=== PATIENT | male | born 1970 | race Caucasian/White ===

== ENCOUNTER 2018-03-18 17:27 | Emergency (ER) | payer SELFPAY ==
[~2018-03-18] VITALS: Ht 167.6 cm; Wt 65.9 kg
[~2018-03-18 17:27] MED LIST: ARIP15TA2 PO; FOLI1 PO; GABA-531 PO; MULT-1203 PO; THIA100T13 PO; VENL-67 PO
[2018-03-18 19:55] VITALS: BP 132/74
== END 2018-03-18 20:41 | disposition home or self-care (01) ==
LOC: EMS 17:28
DX: F10.10 Alcohol abuse, uncomplicated (principal); R03.0 Elevated blood-pressure reading, without diagnosis of hypertension; F31.9 Bipolar disorder, unspecified; F41.9 Anxiety disorder, unspecified; F14.90 Cocaine use, unspecified, uncomplicated; F15.90 Other stimulant use, unspecified, uncomplicated; F17.210 Nicotine dependence, cigarettes, uncomplicated; Z79.899 Other long term (current) drug therapy; Y90.0 Blood alcohol level of less than 20 mg/100 ml

== ENCOUNTER 2018-07-12 11:28 | Emergency (ER) | payer MEDICAID ==
[~2018-07-12] VITALS: Ht 167.6 cm; Wt 63.6 kg
[2018-07-12] MEDS ORDERED: DULO20CA30 PO (11:43)
[2018-07-12 15:20] LABS: BASOPHILS % (AUTO) 1.3 % (0.0-2.0); EOSINOPHILS % (AUTO) 2.3 % (1.0-6.0); HEMATOCRIT 38.2 % (41-53); HEMOGLOBIN 13.1 g/dL (13.5-17.5); LYMPHOCYTES # (AUTO) 1.8 K/uL (1.0-4.8); LYMPHOCYTES % (AUTO) 26.6 % (22.0-44.0); MEAN CORPUSCULAR HEMOGLOBIN 29.1 pg (26.0-34.0); MEAN CORPUSCULAR HGB CONC 34.2 G/dL (31.0-37.0); MEAN CORPUSCULAR VOLUME 85 fL (80-100); MONOCYTES # (AUTO) 0.7 K/uL (0.1-1.0); MONOCYTES % (AUTO) 10.1 % (2.0-9.0); NEUTROPHILS # (AUTO) 3.9 K/uL (1.8-7.7); NEUTROPHILS % (AUTO) 59.7 % (40.0-70.0); PLATELET COUNT (AUTO) 249 K/uL (150-450); RED BLOOD CELL COUNT(AUTO) 4.49 MIL/uL (4.50-5.90); RED CELL DISTRIBUTION WIDTH 13.9 % (11.5-14.5)
[2018-07-12 15:29] LABS: ALANINE AMINOTRANSFERASE 37 U/L (12-78); ALBUMIN 3.3 g/dL (3.4-5.0); ALKALINE PHOSPHATASE 43 U/L (46-116); ANION GAP 8 mmol/L (8-16); ASPARTATE AMINOTRANSFERASE 27 U/L (15-37); BILIRUBIN,TOTAL 0.8 mg/dL (0.1-1.0); CALCIUM, TOTAL 8.9 mg/dL (8.8-10.5); CARBON DIOXIDE 27 mmol/L (22-29); CHLORIDE 102 mmol/L (98-107); CREATININE 0.75 mg/dL (0.60-1.30); GLOMERULAR FILTR. RATE CALC > 60 mL/min (>60); GLUCOSE,RANDOM 72 mg/dL (70-110); LIPASE 106 U/L (73-393); POTASSIUM 4.5 mmol/L (3.5-5.1); SODIUM SERUM 137 mmol/L (136-145); TOTAL PROTEIN, SERUM 6.7 g/dL (6.4-8.2)
[2018-07-12] MEDS ORDERED: PROMETHAZINE HCL 25 MG TABLET PO ONE (15:30)
[2018-07-12 15:41] LABS: UREA NITROGEN, BLOOD 17 mg/dL (7-18)
[2018-07-12 16:45] VITALS: BP 101/77
[2018-07-12 17:40] LABS: APPEARANCE,URINE CLOUDY (CLEAR); BILIRUBIN,URINE PRELIM. POSITIVE (NEGATIVE); GLUCOSE, URINE (UA) NEGATIVE (NEGATIVE); KETONES,URINE TRACE mg/dL (NEGATIVE); LEUKOCYTE ESTERASE ,URINE NEGATIVE (NEGATIVE); NITRATE,URINE NEGATIVE (NEGATIVE); OCCULT BLOOD,URINE NEGATIVE (NEGATIVE); PH,URINE 6.5 (5.0-8.0); PROTEIN,URINE NEGATIVE (NEGATIVE)
== END 2018-07-12 17:21 | disposition home or self-care (01) ==
LOC: EMS 11:29
DX: R11.2 Nausea with vomiting, unspecified (principal); F41.9 Anxiety disorder, unspecified; F31.9 Bipolar disorder, unspecified; F19.90 Other psychoactive substance use, unspecified, uncomplicated; F14.90 Cocaine use, unspecified, uncomplicated

== ENCOUNTER 2019-12-30 12:36 | Inpatient (IN) | payer MEDICAID, OTHER ==
[~2019-12-30] VITALS: Ht 172.7 cm; Wt 72.8 kg
[~2019-12-30 12:36] MED LIST changes: +DULO20CA27 PO; -FOLI1 PO; -GABA-531 PO; -MULT-1203 PO; -THIA100T13 PO; -VENL-67 PO
[2019-12-30] MEDS ORDERED: SODIUM CHLORIDE 0.9% 100 ML ONE (12:57)
[2019-12-30] MEDS ORDERED: IOVERSOL 320 MG/ML 100 ML VIAL ONE (12:57)
[2019-12-30] MEDS ORDERED: PERTUSS(ACELL),DIPH,TET VAC/PF 0.5 ML VIAL IM ONE (13:00)
[2019-12-30] MEDS ORDERED: NALOXONE HCL 1 MG/ML 2 ML SYG IVP ONE (13:00)
[2019-12-30 13:06] LABS: GLUCOSE,POINT OF CARE 119 MG/DL (70-110)
[2019-12-30] MEDS ORDERED: SODIUM CHLORIDE 0.9% 1,000 ML IV ONE ×2 (13:30→15:00)
[2019-12-30 14:05] LABS: HEMATOCRIT 40.5 % (41-53); HEMOGLOBIN 14.1 g/dL (13.5-17.5); MEAN CORPUSCULAR HEMOGLOBIN 31.5 pg (26.0-34.0); MEAN CORPUSCULAR HGB CONC 34.9 G/dL (31.0-37.0); MEAN CORPUSCULAR VOLUME 90 fL (80-100); PLATELET COUNT (AUTO) 416 K/uL (150-450); RED BLOOD CELL COUNT(AUTO) 4.49 MIL/uL (4.50-5.90); RED CELL DISTRIBUTION WIDTH 13.7 % (11.5-14.5)
[2019-12-30 14:21] LABS: ABG A-A DIFF O2 169.5 mmHg (10-20.0); ABG BASE EXCESS -1.5 mmol/L (-2.0-3.0); ABG CARBOXYHEMOGLOBIN 1.5 % (0.0-1.5); ABG HCO3 23.1 mmol/L (22.0-26.0); ABG METHEMOGLOBIN 0.2 % (0.0-1.5); ABG OXYGEN CONTENT 15.5 mL/dL (15.0-23.0); ABG OXYHEMOGLOBIN 78.9 % (94.0-100.0); ABG PCO2 38 mmHg (35-45); ABG PH 7.402 (7.35-7.450); PO2, ARTERIAL BG 42.4 mmHg (88.0-96.0); SOURCE, BLOOD GAS ARTERIAL; TEMPERATURE, FAHRENHEIT, BG 99.7 FAHREN (96.0-98.6)
[2019-12-30 14:22] LABS: ABG OXYGEN SATURATION 80.3 % (95.0-98.0); O2 DEVICE,BLOOD GAS CANNULA (ROOM AIR); SITE, BLOOD GAS RT BRACHIAL
[2019-12-30 14:31] LABS: BAND NEUTROPHILS % (MANUAL) 54 % (0-5); LYMPHOCYTES % (MANUAL) 9 % (22-44); METAMYELOCYTES % 2 % (0-0); MONOCYTES % (MANUAL) 2 % (2-9); SEGMENTED NEUTROPHILS % 33 % (40-70)
[2019-12-30 14:32] LABS: LACTIC ACID 2.7 mmol/L (0.4-2.0)
[2019-12-30 14:52] LABS: AMPHET/METH SCREEN,URINE NEGATIVE (NEGATIVE); BARBITURATE SCREEN, URINE NEGATIVE (NEGATIVE); BENZODIAZEPINES SCREEN,URINE POSITIVE (NEGATIVE); CANNABINOID SCREEN,URINE NEGATIVE (NEGATIVE); COCAINE SCREEN,URINE NEGATIVE (NEGATIVE); METHADONE SCREEN, URINE POSITIVE (NEGATIVE); OPIATE SCREEN,URINE NEGATIVE (NEGATIVE)
[2019-12-30 14:55] LABS: PHENCYCLIDINE SCREEN,URINE NEGATIVE (NEGATIVE)
[2019-12-30] MEDS ORDERED: IOVERSOL 350 MG/ML 100 ML VIAL ONE (14:55)
[2019-12-30] MEDS ORDERED: VANCOMYCIN HCL 1 GM/D5% WATER 200 ML IV ONE (15:00)
[2019-12-30] MEDS ORDERED: PIPERACILLIN/TAZO 3.375 GM/D5W 50 ML IV ONE (15:00)
[2019-12-30] MEDS ORDERED: AZITHROMYCIN 500 MG/NS 250 ML IV ONE (15:15)
[2019-12-30] MEDS ORDERED: DEXAMETHASONE SOD PHOS 4 MG/ML VIAL IVP ONE (15:30)
[2019-12-30] MEDS ORDERED: IPRATROPIUM BROMIDE 0.5 MG/2.5 ML NEB SOLUTION NEB ONE (15:30)
[2019-12-30] MEDS ORDERED: ALBUTEROL SULFATE 2.5 MG/0.5 ML NEB SOLUTION NEB ONE (15:30)
[2019-12-30 15:32] LABS: ALBUMIN 2.8 g/dL (3.4-5.0); BILIRUBIN,TOTAL 1.1 mg/dL (0.1-1.0); CALCIUM, TOTAL 8.8 mg/dL (8.8-10.5); CREATININE 1.45 mg/dL (0.60-1.30); TOTAL PROTEIN, SERUM 7.9 g/dL (6.4-8.2)
[2019-12-30 18:05] LABS: ABG A-A DIFF O2 605.1 mmHg (10-20.0); ABG BASE EXCESS -4.8 mmol/L (-2.0-3.0); ABG CARBOXYHEMOGLOBIN 0.8 % (0.0-1.5); ABG HCO3 20.7 mmol/L (22.0-26.0); ABG METHEMOGLOBIN 0.3 % (0.0-1.5); ABG OXYGEN CONTENT 17.9 mL/dL (15.0-23.0); ABG OXYGEN SATURATION 92.7 % (95.0-98.0); ABG OXYHEMOGLOBIN 91.7 % (94.0-100.0); ABG PCO2 41 mmHg (35-45); ABG PH 7.331 (7.35-7.450); ABG TOTAL HEMOGLOBIN 13.9 G/dL (12.0-18.0); PO2, ARTERIAL BG 66.8 mmHg (88.0-96.0); SOURCE, BLOOD GAS ARTERIAL; TEMPERATURE, FAHRENHEIT, BG 98.7 FAHREN (96.0-98.6)
[2019-12-30 18:06] LABS: O2 DEVICE,BLOOD GAS NON REBREATHER (ROOM AIR); SITE, BLOOD GAS RT BRACHIAL
[2019-12-30] MEDS ORDERED: ACETAMINOPHEN 325 MG TABLET PO PRN (18:30)
[2019-12-30] MEDS ORDERED: 0.9% SODIUM CHLORIDE 10 ML SYRINGE IVP PRN (18:30)
[2019-12-30] MEDS ORDERED: ONDANSETRON HCL 4 MG/2 ML VIAL IVP PRN ×2 (18:30→19:15)
[2019-12-30 18:38] LABS: INFLUENZA TYPE A NEGATIVE FOR TYPE A (NEGATIVE); INFLUENZA TYPE B NEGATIVE FOR TYPE B (NEGATIVE)
[2019-12-30] MEDS ORDERED: *CLINICAL-CEFEPIME DOSING CLINICAL ONE (19:15)
[2019-12-30] MEDS ORDERED: BISACODYL 10 MG RECTAL RECTAL SUPPOSITORY PR PRN (19:15)
[2019-12-30] MEDS ORDERED: MORPHINE SULFATE 10 MG/ML SYRINGE IVP PRN (19:15)
[2019-12-30] MEDS: SODIUM CHLORIDE 0.9% 1,000 ML IV SCH (19:21)
[2019-12-30] MEDS ORDERED: GADOBUTROL 1 MMOL/ML 10 ML VIAL IVP ONE (19:29)
[2019-12-30] MEDS ORDERED: VANCOMYCIN HCL 500 MG in DEXTROSE 5%-WATER 100 ML IV ONE (19:45)
[2019-12-30] MEDS: CEFEPIME HCL 1 GM in DEXTROSE 5%-WATER 50 ML IV SCH (21:20)
[2019-12-30] MEDS ORDERED: LORazepam 2 MG TABLET PO PRN (22:30)
[2019-12-30] MEDS ORDERED: HEPARIN SODIUM,PORCINE 5,000 UNITS/ML VIAL IVP PRN ×2 (23:00)
[2019-12-30] MEDS ORDERED: HALOPERIDOL LACTATE 5 MG/ML VIAL IVP ONE (23:45)
[2019-12-31] MEDS ORDERED: HEPARIN SODIUM,PORCINE 5,000 UNITS/ML VIAL SQ SCH
[2019-12-31 00:28] LABS: HEMATOCRIT 38.4 % (41-53); MEAN CORPUSCULAR HEMOGLOBIN 30.6 pg (26.0-34.0); MEAN CORPUSCULAR HGB CONC 33.9 G/dL (31.0-37.0); MEAN CORPUSCULAR VOLUME 90 fL (80-100); PLATELET COUNT (AUTO) 371 K/uL (150-450); RED BLOOD CELL COUNT(AUTO) 4.26 MIL/uL (4.50-5.90); RED CELL DISTRIBUTION WIDTH 13.7 % (11.5-14.5)
[2019-12-31 00:47] LABS: INR 1.3 (0.9-1.1); PROTHROMBIN TIME 13.5 SEC (9.4-11.6)
[2019-12-31 01:00] LABS: BAND NEUTROPHILS % (MANUAL) 52 % (0-5); LYMPHOCYTES % (MANUAL) 5 % (22-44); METAMYELOCYTES % 2 % (0-0); MONOCYTES % (MANUAL) 4 % (2-9); SEGMENTED NEUTROPHILS % 37 % (40-70)
[2019-12-31] MEDS: HEPARIN SODIUM 25000 UNITS/D5W 250 ML IV PRN (01:14)
[2019-12-31] MEDS ORDERED: LORazepam 2 MG/ML VIAL IVP ONE (04:00)
[2019-12-31] MEDS ORDERED: ACETAMINOPHEN 650 MG RECTAL SUPPOSITORY PR ONE (04:30)
[2019-12-31 05:18] LABS: ABG BASE EXCESS 0.8 mmol/L (-2.0-3.0); ABG HCO3 24.7 mmol/L (22.0-26.0); ABG METHEMOGLOBIN 0.3 % (0.0-1.5); ABG OXYGEN CONTENT 18.4 mL/dL (15.0-23.0); ABG OXYHEMOGLOBIN 94.7 % (94.0-100.0); ABG PCO2 47 mmHg (35-45); ABG PH 7.365 (7.35-7.450); ABG TOTAL HEMOGLOBIN 13.8 G/dL (12.0-18.0); PO2, ARTERIAL BG 71.2 mmHg (88.0-96.0); SOURCE, BLOOD GAS ARTERIAL; TEMPERATURE, FAHRENHEIT, BG 98.6 FAHREN (96.0-98.6)
[2019-12-31 05:19] LABS: O2 DEVICE,BLOOD GAS NON REBREATHER (ROOM AIR); SITE, BLOOD GAS RT RADIAL
[2019-12-31 06:42] LABS: GLUCOSE,POINT OF CARE 153 MG/DL (70-110)
[2019-12-31 08:01] LABS: BASOPHILS % (AUTO) 0.2 % (0.0-2.0); EOSINOPHILS % (AUTO) 1.6 % (1.0-6.0); HEMATOCRIT 37.9 % (41-53); HEMOGLOBIN 13.4 g/dL (13.5-17.5); LYMPHOCYTES # (AUTO) 0.2 K/uL (1.0-4.8); LYMPHOCYTES % (AUTO) 2.4 % (22.0-44.0); MEAN CORPUSCULAR HEMOGLOBIN 31.7 pg (26.0-34.0); MEAN CORPUSCULAR HGB CONC 35.4 G/dL (31.0-37.0); MEAN CORPUSCULAR VOLUME 89 fL (80-100); MONOCYTES # (AUTO) 0.2 K/uL (0.1-1.0); MONOCYTES % (AUTO) 2.3 % (2.0-9.0); PLATELET COUNT (AUTO) 330 K/uL (150-450); RED BLOOD CELL COUNT(AUTO) 4.24 MIL/uL (4.50-5.90); RED CELL DISTRIBUTION WIDTH 13.8 % (11.5-14.5)
[2019-12-31 08:10] LABS: NEUTROPHILS % (AUTO) 93.5 % (40.0-70.0)
[2019-12-31 08:18] LABS: ALANINE AMINOTRANSFERASE 45 U/L (12-78); ALBUMIN 2.1 g/dL (3.4-5.0); ALKALINE PHOSPHATASE 39 U/L (46-116); ANION GAP 4 mmol/L (8-16); ASPARTATE AMINOTRANSFERASE 85 U/L (15-37); BILIRUBIN,TOTAL 0.7 mg/dL (0.1-1.0); CALCIUM, TOTAL 7.9 mg/dL (8.8-10.5); CARBON DIOXIDE 29 mmol/L (22-29); CHLORIDE 102 mmol/L (98-107); CREATININE 1.17 mg/dL (0.60-1.30); GLOMERULAR FILTR. RATE CALC > 60 mL/min (>60); GLUCOSE,RANDOM 152 mg/dL (70-110); POTASSIUM 4.8 mmol/L (3.5-5.1); SODIUM SERUM 135 mmol/L (136-145); TOTAL PROTEIN, SERUM 6.8 g/dL (6.4-8.2); UREA NITROGEN, BLOOD 15 mg/dL (7-18)
[2019-12-31 09:00] VITALS: BP 111/70
[2019-12-31] MEDS: LORazepam 2 MG TABLET PO SCH ×4 (09:00→21:00)
[2019-12-31] MEDS: CEFEPIME HCL 1 GM in DEXTROSE 5%-WATER 50 ML IV SCH (09:49)
[2019-12-31] MEDS: SODIUM CHLORIDE 0.9% 1,000 ML IV SCH (09:50)
[2019-12-31] MEDS: VANCOMYCIN HCL 750 MG in DEXTROSE 5%-WATER 250 ML IV SCH ×2 (09:50→19:53)
[2019-12-31] MEDS: DEXAMETHASONE SOD PHOS 4 MG/ML VIAL IVP SCH (09:51)
[2019-12-31] MEDS ORDERED: SODIUM CHLORIDE 0.9% 250 ML IV ONE ×2 (09:54→23:16)
[2019-12-31] MEDS ORDERED: PANTOPRAZOLE SODIUM 40 MG DR TABLET PO SCH (11:30)
[2019-12-31] MEDS ORDERED: ALBUTEROL SULFATE/IPRATROPIUM 100-20 MCG/SPRAY 4 GM INHALER IH PRN (11:30)
[2019-12-31] MEDS ORDERED: ACETAMINOPHEN 650 MG RECTAL SUPPOSITORY PR PRN (11:45)
[2019-12-31 12:00] VITALS: BP 122/74
[2019-12-31] MEDS ORDERED: SODIUM CHLORIDE 0.9% 1,000 ML IV SCH (12:30)
[2019-12-31] MEDS: 1: MAGNESIUM SULFATE 2 GM, MVI, ADULT NO.1 WITH VIT K 10 ML, THIAMINE 100 MG, FOLIC ACID IV SCH ×5 (12:42)
[2019-12-31] MEDS: METOPROLOL SUCCINATE 25 MG ER TABLET PO SCH (12:42)
[2019-12-31] MEDS: ASPIRIN 81 MG CHEWABLE TABLET PO SCH (12:42)
[2019-12-31] MEDS: PANTOPRAZOLE SODIUM 40 MG/VIAL IVP SCH (12:42)
[2019-12-31] MEDS: ATORVASTATIN CALCIUM 10 MG TABLET PO SCH (12:43)
[2019-12-31 16:00] VITALS: BP 97/77
[2019-12-31 16:37] LABS: D-DIMER 5.28 mg/L FEU (0.00-0.50)
[2019-12-31] MEDS ORDERED: CLINDAMYCIN 900 MG/D5% WATER 50 ML IV SCH (17:00)
[2019-12-31] MEDS: ALBUTEROL SULFATE/IPRATROPIUM 100-20 MCG/SPRAY 4 GM INHALER IH SCH ×2 (18:00→23:47)
[2019-12-31 18:11] LABS: C-REACTIVE PROTEIN QUANT 26.44 mg/dL (0.00-0.30)
[2019-12-31 18:20] LABS: AMPHET/METH SCREEN,URINE NEGATIVE (NEGATIVE); BARBITURATE SCREEN, URINE NEGATIVE (NEGATIVE); BENZODIAZEPINES SCREEN,URINE POSITIVE (NEGATIVE); CANNABINOID SCREEN,URINE NEGATIVE (NEGATIVE); COCAINE SCREEN,URINE NEGATIVE (NEGATIVE); METHADONE SCREEN, URINE POSITIVE (NEGATIVE); OPIATE SCREEN,URINE NEGATIVE (NEGATIVE)
[2019-12-31 18:22] LABS: PHENCYCLIDINE SCREEN,URINE NEGATIVE (NEGATIVE)
[2019-12-31] MEDS ORDERED: *CLINICAL-RX DOSING [ENTER DRUG IN COMMENTS] CLINICAL ONE (20:45)
[2019-12-31] MEDS: LORazepam 2 MG TABLET PO PRN (22:42)
[2019-12-31] MEDS ORDERED: SODIUM CHLORIDE 0.9% 500 ML IV ONE (23:16)
[2020-01-01] VITALS (8 sets, daily range): BP systolic 105–158; BP diastolic 63–101
[2020-01-01 05:48] LABS: HEMATOCRIT 36.6 % (41-53); HEMOGLOBIN 12.4 g/dL (13.5-17.5); MEAN CORPUSCULAR HEMOGLOBIN 30.4 pg (26.0-34.0); MEAN CORPUSCULAR HGB CONC 33.8 G/dL (31.0-37.0); MEAN CORPUSCULAR VOLUME 90 fL (80-100); PLATELET COUNT (AUTO) 363 K/uL (150-450); RED BLOOD CELL COUNT(AUTO) 4.06 MIL/uL (4.50-5.90); RED CELL DISTRIBUTION WIDTH 13.7 % (11.5-14.5)
[2020-01-01 05:55] LABS: D-DIMER 3.25 mg/L FEU (0.00-0.50)
[2020-01-01] MEDS ORDERED: [UNRECOGNIZED DRUG - MIXTURE] IV ONE (06:00)
[2020-01-01] MEDS ORDERED: SODIUM CHLORIDE 0.9% 250 ML IV ONE ×2 (06:15→15:43)
[2020-01-01 06:51] LABS: ALANINE AMINOTRANSFERASE 39 U/L (12-78); ALBUMIN 1.9 g/dL (3.4-5.0); ALKALINE PHOSPHATASE 49 U/L (46-116); ASPARTATE AMINOTRANSFERASE 49 U/L (15-37); BILIRUBIN,TOTAL 0.5 mg/dL (0.1-1.0); C-REACTIVE PROTEIN QUANT 23.62 mg/dL (0.00-0.30); CALCIUM, TOTAL 8.7 mg/dL (8.8-10.5); CARBON DIOXIDE 32 mmol/L (22-29); CREATININE 0.84 mg/dL (0.60-1.30); FERRITIN 528 ng/mL (26-388); GLOMERULAR FILTR. RATE CALC > 60 mL/min (>60); GLUCOSE,RANDOM 158 mg/dL (70-110); TOTAL PROTEIN, SERUM 6.9 g/dL (6.4-8.2); UREA NITROGEN, BLOOD 16 mg/dL (7-18); VANCOMYCIN,RANDOM 8.3 mcg/mL (25.0-50.0)
[2020-01-01 06:58] LABS: BAND NEUTROPHILS % (MANUAL) 50 % (0-5); LYMPHOCYTES % (MANUAL) 5 % (22-44); METAMYELOCYTES % 3 % (0-0); MONOCYTES % (MANUAL) 3 % (2-9); SEGMENTED NEUTROPHILS % 39 % (40-70)
[2020-01-01 07:32] LABS: ANION GAP 3 mmol/L (8-16); CHLORIDE 100 mmol/L (98-107); POTASSIUM 4.3 mmol/L (3.5-5.1); SODIUM SERUM 135 mmol/L (136-145)
[2020-01-01] MEDS: METOPROLOL SUCCINATE 25 MG ER TABLET PO SCH (07:48)
[2020-01-01] MEDS: DEXAMETHASONE SOD PHOS 4 MG/ML VIAL IVP SCH (07:48)
[2020-01-01] MEDS: LORazepam 2 MG TABLET PO SCH ×4 (07:48→19:27)
[2020-01-01] MEDS: ASPIRIN 81 MG CHEWABLE TABLET PO SCH (07:48)
[2020-01-01] MEDS: ATORVASTATIN CALCIUM 10 MG TABLET PO SCH (07:48)
[2020-01-01] MEDS: VANCOMYCIN HCL 750 MG in DEXTROSE 5%-WATER 250 ML IV SCH ×3 (07:49→23:08)
[2020-01-01] MEDS: PANTOPRAZOLE SODIUM 40 MG/VIAL IVP SCH (07:49)
[2020-01-01] MEDS ORDERED: GADOBUTROL 1 MMOL/ML 10 ML VIAL IVP ONE (08:03)
[2020-01-01] MEDS: ALBUTEROL SULFATE/IPRATROPIUM 100-20 MCG/SPRAY 4 GM INHALER IH SCH ×3 (08:04→22:06)
[2020-01-01] MEDS: LORazepam 2 MG TABLET PO PRN (10:42)
[2020-01-01] MEDS ORDERED: FentaNYL CITRATE-PF 100 MCG/2 ML VIAL IVP ONE (12:00)
[2020-01-01] MEDS ORDERED: SUCCINYLCHOLINE CHLORIDE 20 MG/ML 10 ML VIAL IVP ONE (12:00)
[2020-01-01] MEDS ORDERED: ETOMIDATE 2 MG/ML 10 ML VIAL IVP ONE (12:00)
[2020-01-01] MEDS ORDERED: MIDAZOLAM HCL 2 MG/2 ML VIAL IVP ONE (12:00)
[2020-01-01] MEDS ORDERED: LIDOCAINE/PF 2% 5 ML VIAL INJ ONE (12:00)
[2020-01-01] MEDS ORDERED: SODIUM CHLORIDE 0.9% 1,000 ML ONE (12:35)
[2020-01-01] MEDS ORDERED: RINGERS SOLUTION,LACTATED 1,000 ML IV ONE (13:30)
[2020-01-01] MEDS ORDERED: BACITRACIN 50,000 UNITS/VIAL ONE (13:44)
[2020-01-01] MEDS ORDERED: VANCOMYCIN HCL 1 GM/VIAL ONE (13:48)
[2020-01-01] MEDS: 1: MAGNESIUM SULFATE 2 GM, MVI, ADULT NO.1 WITH VIT K 10 ML, THIAMINE 100 MG, FOLIC ACID IV SCH ×5 (15:31)
[2020-01-01] MEDS: PENICILLIN G POTASSIUM 3 MILUNITS in DEXTROSE 5%-WATER 50 ML IV SCH ×3 (15:31→23:13)
[2020-01-01] MEDS: LEVOFLOXACIN 750 MG/D5% WATER 150 ML IV SCH (15:35)
[2020-01-01] MEDS ORDERED: MetroNIDAZOLE 500 MG/NACL 100 ML IV SCH (16:00)
[2020-01-01] MEDS: MetroNIDAZOLE 500 MG/NACL 100 ML IV SCH (17:35)
[2020-01-01] MEDS: HEPARIN SODIUM 25000 UNITS/D5W 250 ML IV PRN (20:00)
[2020-01-01] MEDS: MORPHINE SULFATE 2 MG/ML SYRINGE IVP PRN (21:34)
[2020-01-02] VITALS (9 sets, daily range): BP systolic 130–160; BP diastolic 57–105
[2020-01-02] MEDS: MetroNIDAZOLE 500 MG/NACL 100 ML IV SCH ×3 (01:28→17:11)
[2020-01-02] MEDS: MORPHINE SULFATE 2 MG/ML SYRINGE IVP PRN ×2 (02:00→07:33)
[2020-01-02] MEDS: HEPARIN SODIUM 25000 UNITS/D5W 250 ML IV PRN (02:30)
[2020-01-02] MEDS: PENICILLIN G POTASSIUM 3 MILUNITS in DEXTROSE 5%-WATER 50 ML IV SCH ×6 (03:34→22:44)
[2020-01-02] MEDS: ALBUTEROL SULFATE/IPRATROPIUM 100-20 MCG/SPRAY 4 GM INHALER IH SCH ×4 (04:41→20:07)
[2020-01-02 05:40] LABS: HEMATOCRIT 35.4 % (41-53); HEMOGLOBIN 11.8 g/dL (13.5-17.5); MEAN CORPUSCULAR HEMOGLOBIN 30.1 pg (26.0-34.0); MEAN CORPUSCULAR HGB CONC 33.5 G/dL (31.0-37.0); MEAN CORPUSCULAR VOLUME 90 fL (80-100); PLATELET COUNT (AUTO) 397 K/uL (150-450); RED BLOOD CELL COUNT(AUTO) 3.93 MIL/uL (4.50-5.90); RED CELL DISTRIBUTION WIDTH 13.9 % (11.5-14.5)
[2020-01-02 05:44] LABS: D-DIMER 2.82 mg/L FEU (0.00-0.50)
[2020-01-02] MEDS: LORazepam 2 MG TABLET PO PRN (06:16)
[2020-01-02 06:35] LABS: ALANINE AMINOTRANSFERASE 32 U/L (12-78); ALBUMIN 1.8 g/dL (3.4-5.0); ALKALINE PHOSPHATASE 61 U/L (46-116); ANION GAP 3 mmol/L (8-16); ASPARTATE AMINOTRANSFERASE 46 U/L (15-37); BILIRUBIN,TOTAL 0.5 mg/dL (0.1-1.0); C-REACTIVE PROTEIN QUANT 9.67 mg/dL (0.00-0.30); CALCIUM, TOTAL 8.1 mg/dL (8.8-10.5); CARBON DIOXIDE 32 mmol/L (22-29); CHLORIDE 101 mmol/L (98-107); CREATININE 0.86 mg/dL (0.60-1.30); FERRITIN 641 ng/mL (26-388); GLOMERULAR FILTR. RATE CALC > 60 mL/min (>60); GLUCOSE,RANDOM 137 mg/dL (70-110); POTASSIUM 4.3 mmol/L (3.5-5.1); SODIUM SERUM 136 mmol/L (136-145); TOTAL PROTEIN, SERUM 6.2 g/dL (6.4-8.2); UREA NITROGEN, BLOOD 19 mg/dL (7-18)
[2020-01-02 07:02] LABS: BAND NEUTROPHILS % (MANUAL) 21 % (0-5); LYMPHOCYTES % (MANUAL) 10 % (22-44); METAMYELOCYTES % 3 % (0-0); MONOCYTES % (MANUAL) 4 % (2-9); SEGMENTED NEUTROPHILS % 62 % (40-70)
[2020-01-02] MEDS: VANCOMYCIN HCL 750 MG in DEXTROSE 5%-WATER 250 ML IV SCH ×3 (07:12→22:42)
[2020-01-02] MEDS ORDERED: SODIUM CHLORIDE 0.9% 250 ML IV ONE ×2 (07:13)
[2020-01-02] MEDS: LORazepam 1 MG TABLET PO PRN ×2 (07:33→11:20)
[2020-01-02] MEDS: METOPROLOL SUCCINATE 25 MG ER TABLET PO SCH (08:42)
[2020-01-02] MEDS: DEXAMETHASONE SOD PHOS 4 MG/ML VIAL IVP SCH (08:42)
[2020-01-02] MEDS: LORazepam 1 MG TABLET PO SCH ×4 (08:43→20:29)
[2020-01-02] MEDS: PANTOPRAZOLE SODIUM 40 MG/VIAL IVP SCH (08:43)
[2020-01-02] MEDS: ASPIRIN 81 MG CHEWABLE TABLET PO SCH (08:43)
[2020-01-02] MEDS: ATORVASTATIN CALCIUM 10 MG TABLET PO SCH (08:43)
[2020-01-02] MEDS: QUEtiapine FUMARATE 25 MG TABLET PO SCH (11:20)
[2020-01-02] MEDS: MEPERIDINE-PF 25 MG/ML VIAL IM PRN (14:11)
[2020-01-02] MEDS ORDERED: LORazepam 2 MG/ML VIAL IM PRN (15:30)
[2020-01-02] MEDS: LEVOFLOXACIN 750 MG/D5% WATER 150 ML IV SCH (16:20)
[2020-01-02] MEDS: LORazepam 2 MG/ML VIAL IVP PRN ×3 (16:20→22:43)
[2020-01-02] MEDS: ChlordiazePOXIDE HCL 25 MG CAPSULE PO PRN (17:11)
[2020-01-02] MEDS: 1: MAGNESIUM SULFATE 2 GM, MVI, ADULT NO.1 WITH VIT K 10 ML, THIAMINE 100 MG, FOLIC ACID IV SCH ×5 (17:12)
[2020-01-02] MEDS: DEXMEDETOMIDINE HCL 200 MCG in SODIUM CHLORIDE 0.9% 48 ML IV PRN ×2 (18:35→22:44)
[2020-01-02] MEDS: HEPARIN SODIUM,PORCINE 5,000 UNITS/ML VIAL SQ SCH (20:29)
[2020-01-02 21:32] LABS: ABG A-A DIFF O2 646.7 mmHg (10-20.0); ABG BASE EXCESS 3.4 mmol/L (-2.0-3.0); ABG CARBOXYHEMOGLOBIN 0.6 % (0.0-1.5); ABG HCO3 27.1 mmol/L (22.0-26.0); ABG METHEMOGLOBIN 0.3 % (0.0-1.5); ABG OXYGEN CONTENT 12.5 mL/dL (15.0-23.0); ABG OXYHEMOGLOBIN 68.9 % (94.0-100.0); ABG PCO2 34 mmHg (35-45); ABG PH 7.509 (7.35-7.450); ABG TOTAL HEMOGLOBIN 12.9 G/dL (12.0-18.0); SOURCE, BLOOD GAS ARTERIAL; TEMPERATURE, FAHRENHEIT, BG 98.9 FAHREN (96.0-98.6)
[2020-01-02 21:38] LABS: ABG OXYGEN SATURATION 69.5 % (95.0-98.0); O2 DEVICE,BLOOD GAS HI FL CANNULA (ROOM AIR); PO2, ARTERIAL BG 31.7 mmHg (88.0-96.0); SITE, BLOOD GAS LFT RADIAL
[2020-01-02] MEDS ORDERED: RAPID SEQUENCE KIT [RSI] 1 EACH KIT ONE (21:57)
[2020-01-02 23:32] LABS: ABG A-A DIFF O2 468.4 mmHg (10-20.0); ABG BASE EXCESS 1.1 mmol/L (-2.0-3.0); ABG CARBOXYHEMOGLOBIN 0.1 % (0.0-1.5); ABG HCO3 25.8 mmol/L (22.0-26.0); ABG METHEMOGLOBIN 0.3 % (0.0-1.5); ABG OXYGEN CONTENT 15.8 mL/dL (15.0-23.0); ABG OXYGEN SATURATION 99.4 % (95.0-98.0); ABG PCO2 34 mmHg (35-45); ABG PH 7.481 (7.35-7.450); PO2, ARTERIAL BG 211.4 mmHg (88.0-96.0); SOURCE, BLOOD GAS ARTERIAL; TEMPERATURE, FAHRENHEIT, BG 98.2 FAHREN (96.0-98.6)
[2020-01-02 23:33] LABS: O2 DEVICE,BLOOD GAS BIPAP (ROOM AIR); SITE, BLOOD GAS LFT RADIAL
[2020-01-03] VITALS: BP 124/78
[2020-01-03] MEDS: MetroNIDAZOLE 500 MG/NACL 100 ML IV SCH ×3 (00:59→17:07)
[2020-01-03] MEDS: LORazepam 2 MG/ML VIAL IVP PRN ×6 (01:52→22:55)
[2020-01-03] MEDS: ALBUTEROL SULFATE/IPRATROPIUM 100-20 MCG/SPRAY 4 GM INHALER IH SCH ×4 (01:56→19:42)
[2020-01-03] MEDS: PENICILLIN G POTASSIUM 3 MILUNITS in DEXTROSE 5%-WATER 50 ML IV SCH ×6 (02:46→22:15)
[2020-01-03] MEDS: DEXMEDETOMIDINE HCL 200 MCG in SODIUM CHLORIDE 0.9% 48 ML IV PRN ×4 (02:47→20:14)
[2020-01-03 04:00] VITALS: BP 150/99
[2020-01-03 04:36] LABS: HEMATOCRIT 35.9 % (41-53); HEMOGLOBIN 12.2 g/dL (13.5-17.5); MEAN CORPUSCULAR HEMOGLOBIN 30.7 pg (26.0-34.0); MEAN CORPUSCULAR VOLUME 90 fL (80-100); PLATELET COUNT (AUTO) 411 K/uL (150-450); RED BLOOD CELL COUNT(AUTO) 3.97 MIL/uL (4.50-5.90); RED CELL DISTRIBUTION WIDTH 14.2 % (11.5-14.5)
[2020-01-03 04:47] LABS: ALANINE AMINOTRANSFERASE 34 U/L (12-78); ALBUMIN 2.1 g/dL (3.4-5.0); ALKALINE PHOSPHATASE 51 U/L (46-116); ANION GAP 4 mmol/L (8-16); ASPARTATE AMINOTRANSFERASE 51 U/L (15-37); BILIRUBIN,TOTAL 0.7 mg/dL (0.1-1.0); CARBON DIOXIDE 31 mmol/L (22-29); CHLORIDE 99 mmol/L (98-107); GLOMERULAR FILTR. RATE CALC > 60 mL/min (>60); GLUCOSE,RANDOM 93 mg/dL (70-110); POTASSIUM 4.8 mmol/L (3.5-5.1); SODIUM SERUM 134 mmol/L (136-145); TOTAL PROTEIN, SERUM 5.9 g/dL (6.4-8.2); UREA NITROGEN, BLOOD 15 mg/dL (7-18)
[2020-01-03] MEDS: ChlordiazePOXIDE HCL 25 MG CAPSULE PO PRN ×4 (04:52→23:59)
[2020-01-03] MEDS: LORazepam 1 MG TABLET PO PRN (04:53)
[2020-01-03] MEDS ORDERED: SODIUM CHLORIDE 0.9% 1,000 ML ONE (06:42)
[2020-01-03] MEDS ORDERED: LORazepam 1 MG TABLET PO PRN (07:00)
[2020-01-03] MEDS: VANCOMYCIN HCL 750 MG in DEXTROSE 5%-WATER 250 ML IV SCH (07:31)
[2020-01-03] MEDS: 1: MAGNESIUM SULFATE 2 GM, MVI, ADULT NO.1 WITH VIT K 10 ML, THIAMINE 100 MG, FOLIC ACID IV SCH ×10 (07:31→20:14)
[2020-01-03 08:00] VITALS: BP 119/92
[2020-01-03 08:05] LABS: BAND NEUTROPHILS % (MANUAL) 16 % (0-5); LYMPHOCYTES % (MANUAL) 10 % (22-44); METAMYELOCYTES % 3 % (0-0); MONOCYTES % (MANUAL) 6 % (2-9); PLATELET MORPHOLOGY COMMENT GIANT PLTS PRESENT; SEGMENTED NEUTROPHILS % 65 % (40-70)
[2020-01-03] MEDS: ASPIRIN 81 MG CHEWABLE TABLET PO SCH (09:03)
[2020-01-03] MEDS: METOPROLOL SUCCINATE 25 MG ER TABLET PO SCH (09:03)
[2020-01-03] MEDS: ATORVASTATIN CALCIUM 10 MG TABLET PO SCH (09:03)
[2020-01-03] MEDS: PANTOPRAZOLE SODIUM 40 MG/VIAL IVP SCH (09:04)
[2020-01-03] MEDS: QUEtiapine FUMARATE 25 MG TABLET PO SCH (09:04)
[2020-01-03] MEDS: HEPARIN SODIUM,PORCINE 5,000 UNITS/ML VIAL SQ SCH ×3 (09:05→20:25)
[2020-01-03] MEDS: MEPERIDINE-PF 25 MG/ML VIAL IM PRN ×2 (10:17→20:25)
[2020-01-03 11:11] LABS: PATHOLOGY REVIEW, DIFF SEE NOTE.
[2020-01-03 12:00] VITALS: BP 116/65
[2020-01-03] MEDS: VANCOMYCIN HCL 1 GM/D5% WATER 200 ML IV SCH ×2 (14:25→22:15)
[2020-01-03] MEDS: MORPHINE SULFATE 2 MG/ML SYRINGE IVP PRN ×2 (14:26→23:59)
[2020-01-03] MEDS: LEVOFLOXACIN 750 MG/D5% WATER 150 ML IV SCH (15:44)
[2020-01-03 16:00] VITALS: BP 139/79
[2020-01-03] MEDS: METHADONE HCL 10 MG TABLET PO SCH (20:26)
[2020-01-04] VITALS: BP 121/94
[2020-01-04] MEDS: DEXMEDETOMIDINE HCL 200 MCG in SODIUM CHLORIDE 0.9% 48 ML IV PRN ×4 (00:42→21:00)
[2020-01-04] MEDS: MetroNIDAZOLE 500 MG/NACL 100 ML IV SCH ×3 (01:05→17:00)
[2020-01-04] MEDS: ALBUTEROL SULFATE/IPRATROPIUM 100-20 MCG/SPRAY 4 GM INHALER IH SCH ×4 (01:37→21:11)
[2020-01-04] MEDS: MEPERIDINE-PF 25 MG/ML VIAL IM PRN ×4 (02:55→23:56)
[2020-01-04] MEDS: PENICILLIN G POTASSIUM 3 MILUNITS in DEXTROSE 5%-WATER 50 ML IV SCH ×6 (02:55→23:09)
[2020-01-04] MEDS: LORazepam 2 MG/ML VIAL IVP PRN ×4 (02:56→22:14)
[2020-01-04 04:07] VITALS: BP 104/61
[2020-01-04 05:32] LABS: HEMATOCRIT 31.9 % (41-53); HEMOGLOBIN 10.8 g/dL (13.5-17.5); MEAN CORPUSCULAR HEMOGLOBIN 30.7 pg (26.0-34.0); MEAN CORPUSCULAR HGB CONC 33.9 G/dL (31.0-37.0); MEAN CORPUSCULAR VOLUME 91 fL (80-100); PLATELET COUNT (AUTO) 299 K/uL (150-450); RED BLOOD CELL COUNT(AUTO) 3.52 MIL/uL (4.50-5.90); RED CELL DISTRIBUTION WIDTH 13.8 % (11.5-14.5)
[2020-01-04 06:18] LABS: ANION GAP 5 mmol/L (8-16); CALCIUM, TOTAL 7.5 mg/dL (8.8-10.5); CARBON DIOXIDE 26 mmol/L (22-29); CHLORIDE 99 mmol/L (98-107); CREATININE 0.73 mg/dL (0.60-1.30); GLOMERULAR FILTR. RATE CALC > 60 mL/min (>60); GLUCOSE,RANDOM 91 mg/dL (70-110); POTASSIUM 4.3 mmol/L (3.5-5.1); SODIUM SERUM 130 mmol/L (136-145); UREA NITROGEN, BLOOD 10 mg/dL (7-18)
[2020-01-04] MEDS: VANCOMYCIN HCL 1 GM/D5% WATER 200 ML IV SCH ×3 (06:39→23:09)
[2020-01-04 08:00] VITALS: BP 161/104
[2020-01-04] MEDS: ASPIRIN 81 MG CHEWABLE TABLET PO SCH (08:39)
[2020-01-04] MEDS: PANTOPRAZOLE SODIUM 40 MG/VIAL IVP SCH (08:39)
[2020-01-04] MEDS: METOPROLOL SUCCINATE 25 MG ER TABLET PO SCH (08:40)
[2020-01-04] MEDS: HEPARIN SODIUM,PORCINE 5,000 UNITS/ML VIAL SQ SCH ×3 (08:40→21:02)
[2020-01-04] MEDS: QUEtiapine FUMARATE 25 MG TABLET PO SCH ×3 (09:00→10:23)
[2020-01-04] MEDS: ATORVASTATIN CALCIUM 10 MG TABLET PO SCH ×3 (09:00→10:23)
[2020-01-04] MEDS: 1: MAGNESIUM SULFATE 2 GM, MVI, ADULT NO.1 WITH VIT K 10 ML, THIAMINE 100 MG, FOLIC ACID IV SCH ×5 (10:21)
[2020-01-04 12:00] VITALS: BP 133/68
[2020-01-04 13:00] LABS: BAND NEUTROPHILS % (MANUAL) 6 % (0-5); EOSINOPHILS % (MANUAL) 5 % (1-6); LYMPHOCYTES % (MANUAL) 5 % (22-44); METAMYELOCYTES % 2 % (0-0); MONOCYTES % (MANUAL) 3 % (2-9); MYELOCYTES % 2 % (0-0); SEGMENTED NEUTROPHILS % 77 % (40-70)
[2020-01-04] MEDS: ChlordiazePOXIDE HCL 25 MG CAPSULE PO PRN ×2 (13:18→19:32)
[2020-01-04] MEDS: ACETAMINOPHEN 325 MG TABLET PO PRN (13:19)
[2020-01-04 16:00] VITALS: BP 96/53
[2020-01-04] MEDS: LEVOFLOXACIN 750 MG/D5% WATER 150 ML IV SCH (16:44)
[2020-01-04] MEDS ORDERED: SODIUM CHLORIDE 0.9% 250 ML IV ONE (17:05)
[2020-01-04] MEDS: MORPHINE SULFATE 2 MG/ML SYRINGE IVP PRN (18:09)
[2020-01-04 20:00] VITALS: BP 128/72
[2020-01-04] MEDS: METHADONE HCL 10 MG TABLET PO SCH (21:03)
[2020-01-04] MEDS: HALOPERIDOL LACTATE 5 MG/ML VIAL IM PRN (23:54)
[2020-01-05] VITALS: BP 156/109
[2020-01-05] MEDS: DEXMEDETOMIDINE HCL 200 MCG in SODIUM CHLORIDE 0.9% 48 ML IV PRN ×4 (01:02→18:24)
[2020-01-05] MEDS: 1: MAGNESIUM SULFATE 2 GM, MVI, ADULT NO.1 WITH VIT K 10 ML, THIAMINE 100 MG, FOLIC ACID IV SCH ×10 (01:41→13:14)
[2020-01-05] MEDS: MetroNIDAZOLE 500 MG/NACL 100 ML IV SCH ×3 (01:42→16:38)
[2020-01-05] MEDS: ALBUTEROL SULFATE/IPRATROPIUM 100-20 MCG/SPRAY 4 GM INHALER IH SCH ×4 (02:09→22:11)
[2020-01-05] MEDS: PENICILLIN G POTASSIUM 3 MILUNITS in DEXTROSE 5%-WATER 50 ML IV SCH ×6 (03:05→22:05)
[2020-01-05] MEDS: LORazepam 2 MG/ML VIAL IVP PRN ×6 (03:05→22:41)
[2020-01-05 04:00] VITALS: BP 124/74
[2020-01-05 06:26] LABS: ALANINE AMINOTRANSFERASE 24 U/L (12-78); ALBUMIN 1.5 g/dL (3.4-5.0); ALKALINE PHOSPHATASE 55 U/L (46-116); ANION GAP 8 mmol/L (8-16); ASPARTATE AMINOTRANSFERASE 44 U/L (15-37); BILIRUBIN,TOTAL 0.5 mg/dL (0.1-1.0); C-REACTIVE PROTEIN QUANT 18.51 mg/dL (0.00-0.30); CALCIUM, TOTAL 7.5 mg/dL (8.8-10.5); CARBON DIOXIDE 25 mmol/L (22-29); CHLORIDE 98 mmol/L (98-107); CREATININE 0.68 mg/dL (0.60-1.30); GLOMERULAR FILTR. RATE CALC > 60 mL/min (>60); GLUCOSE,RANDOM 87 mg/dL (70-110); POTASSIUM 4.3 mmol/L (3.5-5.1); SODIUM SERUM 131 mmol/L (136-145); TOTAL PROTEIN, SERUM 5.6 g/dL (6.4-8.2); UREA NITROGEN, BLOOD 8 mg/dL (7-18); VANCOMYCIN,RANDOM 17.4 mcg/mL (25.0-50.0)
[2020-01-05] MEDS: VANCOMYCIN HCL 1 GM/D5% WATER 200 ML IV SCH (07:20)
[2020-01-05 08:00] VITALS: BP 139/88
[2020-01-05] MEDS: ASPIRIN 81 MG CHEWABLE TABLET PO SCH (08:10)
[2020-01-05] MEDS: PANTOPRAZOLE SODIUM 40 MG/VIAL IVP SCH (08:10)
[2020-01-05] MEDS: METOPROLOL SUCCINATE 25 MG ER TABLET PO SCH (08:10)
[2020-01-05] MEDS: HALOPERIDOL LACTATE 5 MG/ML VIAL IM PRN ×2 (08:13→20:21)
[2020-01-05] MEDS: MEPERIDINE-PF 25 MG/ML VIAL IM PRN ×2 (08:14→16:37)
[2020-01-05] MEDS: HEPARIN SODIUM,PORCINE 5,000 UNITS/ML VIAL SQ SCH ×3 (08:14→20:21)
[2020-01-05] MEDS: ChlordiazePOXIDE HCL 25 MG CAPSULE PO PRN ×2 (08:15→16:37)
[2020-01-05 09:07] LABS: HEMATOCRIT 33.5 % (41-53); HEMOGLOBIN 11.1 g/dL (13.5-17.5); MEAN CORPUSCULAR HEMOGLOBIN 30.1 pg (26.0-34.0); MEAN CORPUSCULAR HGB CONC 33.1 G/dL (31.0-37.0); MEAN CORPUSCULAR VOLUME 91 fL (80-100); PLATELET COUNT (AUTO) 318 K/uL (150-450); RED BLOOD CELL COUNT(AUTO) 3.69 MIL/uL (4.50-5.90); RED CELL DISTRIBUTION WIDTH 14.4 % (11.5-14.5)
[2020-01-05 09:23] LABS: BAND NEUTROPHILS % (MANUAL) 7 % (0-5); EOSINOPHILS % (MANUAL) 4 % (1-6); LYMPHOCYTES % (MANUAL) 8 % (22-44); METAMYELOCYTES % 3 % (0-0); MONOCYTES % (MANUAL) 2 % (2-9); PLATELET MORPHOLOGY COMMENT GIANT PLTS PRESENT; SEGMENTED NEUTROPHILS % 76 % (40-70)
[2020-01-05] MEDS: MORPHINE SULFATE 2 MG/ML SYRINGE IVP PRN ×2 (10:15→14:29)
[2020-01-05 10:36] LABS: ABG A-A DIFF O2 609.6 mmHg (10-20.0); ABG BASE EXCESS -0.2 mmol/L (-2.0-3.0); ABG CARBOXYHEMOGLOBIN 0.5 % (0.0-1.5); ABG METHEMOGLOBIN 0.3 % (0.0-1.5); ABG OXYGEN CONTENT 14.8 mL/dL (15.0-23.0); ABG OXYGEN SATURATION 90.4 % (95.0-98.0); ABG OXYHEMOGLOBIN 89.7 % (94.0-100.0); ABG PCO2 46 mmHg (35-45); ABG PH 7.359 (7.35-7.450); ABG TOTAL HEMOGLOBIN 11.7 G/dL (12.0-18.0); PO2, ARTERIAL BG 57.5 mmHg (88.0-96.0); SOURCE, BLOOD GAS ARTERIAL; TEMPERATURE, FAHRENHEIT, BG 98.6 FAHREN (96.0-98.6)
[2020-01-05 10:37] LABS: SITE, BLOOD GAS LFT RADIAL
[2020-01-05 10:38] LABS: O2 DEVICE,BLOOD GAS HFNC (ROOM AIR)
[2020-01-05 12:00] VITALS: BP_SYST 128; BP_SYST 90; BP_DIAS 62; BP_DIAS 70
[2020-01-05 12:09] LABS: ABG A-A DIFF O2 199.6 mmHg (10-20.0); ABG BASE EXCESS -3.6 mmol/L (-2.0-3.0); ABG CARBOXYHEMOGLOBIN 0.8 % (0.0-1.5); ABG HCO3 21.9 mmol/L (22.0-26.0); ABG METHEMOGLOBIN 0.3 % (0.0-1.5); ABG OXYGEN CONTENT 14.9 mL/dL (15.0-23.0); ABG OXYGEN SATURATION 98.2 % (95.0-98.0); ABG OXYHEMOGLOBIN 97.1 % (94.0-100.0); ABG PCO2 36 mmHg (35-45); ABG PH 7.391 (7.35-7.450); ABG TOTAL HEMOGLOBIN 10.8 G/dL (12.0-18.0); PO2, ARTERIAL BG 116.4 mmHg (88.0-96.0); SOURCE, BLOOD GAS ARTERIAL; TEMPERATURE, FAHRENHEIT, BG 98.6 FAHREN (96.0-98.6)
[2020-01-05 12:12] LABS: O2 DEVICE,BLOOD GAS HFNC (ROOM AIR); SITE, BLOOD GAS LFT RADIAL
[2020-01-05] MEDS ORDERED: SODIUM CHLORIDE 0.9% 1,000 ML ONE (13:12)
[2020-01-05 14:05] LABS: LEGIONELLA PNEUMO AG URINE Negative (Negative); ORGANISM ID Not indicated.; S PNEUMO SOURCE Urine; STREP PNEUMONIAE AG URINE Negative (Negative); STREP.PNEUMO BODY FLUID CULT. Not indicated.
[2020-01-05] MEDS: LEVOFLOXACIN 750 MG/D5% WATER 150 ML IV SCH (15:09)
[2020-01-05] MEDS: VANCOMYCIN HCL 1.25 GM in DEXTROSE 5%-WATER 250 ML IV SCH ×2 (15:10→22:05)
[2020-01-05 16:00] VITALS: BP 121/75
[2020-01-05 17:03] LABS: APPEARANCE,URINE CLOUDY (CLEAR); GLUCOSE, URINE (UA) NEGATIVE (NEGATIVE); KETONES,URINE >=80 mg/dL (NEGATIVE); LEUKOCYTE ESTERASE ,URINE SMALL (NEGATIVE); NITRATE,URINE NEGATIVE (NEGATIVE); OCCULT BLOOD,URINE LARGE (NEGATIVE); PROTEIN,URINE POS 1+ (NEGATIVE)
[2020-01-05 17:05] LABS: BILIRUBIN,URINE PRELIM. POSITIVE (NEGATIVE)
[2020-01-05 17:18] LABS: RBC,URINE 51-100 /HPF (0-2)
[2020-01-05 17:21] LABS: BACTERIA,URINE Few /HPF (None Seen); SQUAMOUS EPITHELIAL CELL,UR Few /LPF (None Seen); WBC,URINE 0-2 /HPF (0-5)
[2020-01-05 20:00] VITALS: BP 121/65
[2020-01-05] MEDS: METHADONE HCL 10 MG TABLET PO SCH (20:20)
[2020-01-05] MEDS ORDERED: SODIUM CHLORIDE 0.9% 250 ML IV ONE (23:36)
[2020-01-06] VITALS: BP 146/76
[2020-01-06] MEDS: MetroNIDAZOLE 500 MG/NACL 100 ML IV SCH ×2 (00:28→08:56)
[2020-01-06] MEDS: DEXMEDETOMIDINE HCL 200 MCG in SODIUM CHLORIDE 0.9% 48 ML IV PRN ×5 (00:37→19:56)
[2020-01-06] MEDS: ALBUTEROL SULFATE/IPRATROPIUM 100-20 MCG/SPRAY 4 GM INHALER IH SCH ×3 (01:24→14:00)
[2020-01-06] MEDS: PENICILLIN G POTASSIUM 3 MILUNITS in DEXTROSE 5%-WATER 50 ML IV SCH ×4 (03:03→14:55)
[2020-01-06] MEDS: LORazepam 2 MG/ML VIAL IVP PRN ×3 (03:04→12:00)
[2020-01-06 04:00] VITALS: BP 117/67
[2020-01-06 05:37] LABS: HEMATOCRIT 30.4 % (41-53); HEMOGLOBIN 9.9 g/dL (13.5-17.5); MEAN CORPUSCULAR HEMOGLOBIN 29.6 pg (26.0-34.0); MEAN CORPUSCULAR HGB CONC 32.7 G/dL (31.0-37.0); MEAN CORPUSCULAR VOLUME 91 fL (80-100); PLATELET COUNT (AUTO) 281 K/uL (150-450); RED BLOOD CELL COUNT(AUTO) 3.35 MIL/uL (4.50-5.90); RED CELL DISTRIBUTION WIDTH 14.4 % (11.5-14.5)
[2020-01-06 05:43] LABS: ANION GAP 9 mmol/L (8-16); C-REACTIVE PROTEIN QUANT 18.17 mg/dL (0.00-0.30); CALCIUM, TOTAL 7.6 mg/dL (8.8-10.5); CARBON DIOXIDE 26 mmol/L (22-29); CHLORIDE 99 mmol/L (98-107); CREATININE 1.01 mg/dL (0.60-1.30); GLOMERULAR FILTR. RATE CALC > 60 mL/min (>60); GLUCOSE,RANDOM 101 mg/dL (70-110); POTASSIUM 4.4 mmol/L (3.5-5.1); SODIUM SERUM 134 mmol/L (136-145); UREA NITROGEN, BLOOD 11 mg/dL (7-18)
[2020-01-06] MEDS: VANCOMYCIN HCL 1.25 GM in DEXTROSE 5%-WATER 250 ML IV SCH ×2 (06:11→15:37)
[2020-01-06 08:00] VITALS: BP 125/48
[2020-01-06 08:46] LABS: BAND NEUTROPHILS % (MANUAL) 15 % (0-5); EOSINOPHILS % (MANUAL) 1 % (1-6); LYMPHOCYTES % (MANUAL) 2 % (22-44); MONOCYTES % (MANUAL) 2 % (2-9); SEGMENTED NEUTROPHILS % 80 % (40-70)
[2020-01-06] MEDS: ATORVASTATIN CALCIUM 10 MG TABLET PO SCH (08:56)
[2020-01-06] MEDS: PANTOPRAZOLE SODIUM 40 MG/VIAL IVP SCH (08:56)
[2020-01-06] MEDS: ASPIRIN 81 MG CHEWABLE TABLET PO SCH (08:56)
[2020-01-06] MEDS: HEPARIN SODIUM,PORCINE 5,000 UNITS/ML VIAL SQ SCH ×2 (08:56→16:04)
[2020-01-06] MEDS: 1: MAGNESIUM SULFATE 2 GM, MVI, ADULT NO.1 WITH VIT K 10 ML, THIAMINE 100 MG, FOLIC ACID IV SCH ×5 (08:57)
[2020-01-06] MEDS: QUEtiapine FUMARATE 25 MG TABLET PO SCH (08:57)
[2020-01-06] MEDS: METOPROLOL SUCCINATE 25 MG ER TABLET PO SCH (08:57)
[2020-01-06] MEDS: HALOPERIDOL LACTATE 5 MG/ML VIAL IM PRN (09:43)
[2020-01-06 12:00] VITALS: BP 175/95
[2020-01-06] MEDS: MORPHINE SULFATE 2 MG/ML SYRINGE IVP PRN (12:00)
[2020-01-06] MEDS: MEPERIDINE-PF 25 MG/ML VIAL IM PRN ×2 (12:00)
[2020-01-06] MEDS: ChlordiazePOXIDE HCL 25 MG CAPSULE PO PRN (13:38)
[2020-01-06] MEDS ORDERED: [UNRECOGNIZED DRUG - OTHER] IM PRN (13:45)
[2020-01-06] MEDS ORDERED: DIAZEPAM 5 MG/ML 2 ML SYRINGE IVP PRN (14:00)
[2020-01-06 16:00] VITALS: BP 125/67
[2020-01-06] MEDS: ACETAMINOPHEN 325 MG TABLET PO PRN (16:04)
[2020-01-06] MEDS: LEVOFLOXACIN 750 MG/D5% WATER 150 ML IV SCH (16:04)
[2020-01-06 19:56] VITALS: BP 118/57
== END 2020-01-06 21:25 | DRG 710 ==
LOC: EMS 12:38 → ICU 19:10
PROVIDERS: ADMIT Internal Medicine; ATTEND Internal Medicine
PROC: 0R9K0ZZ Drainage of Left Shoulder Joint, Open Approach (ICD-10-PCS; 2020-01-01)
PROC: 0XB30ZZ Excision of Left Shoulder Region, Open Approach (ICD-10-PCS; 2020-01-01)
PROC: 05HY33Z Insertion of Infusion Device into Upper Vein, Percutaneous Approach (ICD-10-PCS; principal; 2020-01-02)
PROC: B54NZZA Ultrasonography of Left Upper Extremity Veins, Guidance (ICD-10-PCS; 2020-01-02)
DX: A41.02 Sepsis due to Methicillin resistant Staphylococcus aureus (principal); J96.01 Acute respiratory failure with hypoxia; N17.9 Acute kidney failure, unspecified; J69.0 Pneumonitis due to inhalation of food and vomit; E43 Unspecified severe protein-calorie malnutrition; F10.239 Alcohol dependence with withdrawal, unspecified; I50.21 Acute systolic (congestive) heart failure; B96.89 Other specified bacterial agents as the cause of diseases classified elsewhere; F20.9 Schizophrenia, unspecified; M60.009 Infective myositis, unspecified site; F41.9 Anxiety disorder, unspecified; F31.9 Bipolar disorder, unspecified; F17.210 Nicotine dependence, cigarettes, uncomplicated; L02.414 Cutaneous abscess of left upper limb; Z20.828 Contact with and (suspected) exposure to other viral communicable diseases; F19.10 Other psychoactive substance abuse, uncomplicated; R65.20 Severe sepsis without septic shock; D64.9 Anemia, unspecified; E78.5 Hyperlipidemia, unspecified; E87.1 Hypo-osmolality and hyponatremia
CPT/HCPCS: 36245; 36569; 36600; 51702; 70450; 71260; 72125; 73201; 73223; 76937; 80307; 82728; 82805; 82948; 83605; 83735; 84145; 85379; 86140; 86850; 86900; 86901; 87040; 87070; 87081; 87205; 87426; 87449; 87804; 87899; 90715; 93005; 93306; 94640; 94660; 99291; A9585; C9113; G0378; G0480; J0330; J0456; J0692; J1100; J1630; J1644; J1956; J2060; J2175; J2250; J2270; J2310; J2540; J2543; J3010; J3370; J3411; J3475; J3490; J7030; J7040; J7050; J7060; J7120; 36415-L1; 36415-TC; 71045-TC; 80202-TC; J7613; U0003-CS

== ENCOUNTER 2021-01-13 12:29 | Emergency (ER) | payer OTHER ==
[~2021-01-13] VITALS: Ht 167.6 cm; Wt 59.1 kg
[~2021-01-13 12:29] MED LIST changes: -ARIP15TA2 PO; +ARIP15TA27 PO
[2021-01-13 12:31] VITALS: BP 128/71
[2021-01-13] MEDS ORDERED: ONDANSETRON HCL 4 MG TABLET PO ONE (14:45)
[2021-01-13] MEDS ORDERED: FAMOTIDINE 20 MG TABLET PO ONE (14:45)
[2021-01-13] MEDS ORDERED: MAG HYDROX/AL HYDROX/SIMETH 30 ML SUSP UDCUP PO ONE (14:45)
== END 2021-01-13 15:09 | disposition home or self-care (01) ==
LOC: EMS 12:29
DX: R11.0 Nausea (principal); F41.9 Anxiety disorder, unspecified; F31.9 Bipolar disorder, unspecified; K21.9 Gastro-esophageal reflux disease without esophagitis; F14.90 Cocaine use, unspecified, uncomplicated; F11.90 Opioid use, unspecified, uncomplicated; F19.90 Other psychoactive substance use, unspecified, uncomplicated
CPT/HCPCS: 99284; Q0162

== ENCOUNTER 2021-02-27 13:12 | Emergency (ER) | payer OTHER ==
[~2021-02-27] VITALS: Ht 167.6 cm; Wt 59.1 kg
[2021-02-27] MEDS ORDERED: ACETAMINOPHEN 500 MG TABLET PO ONE (14:15)
[2021-02-27] MEDS ORDERED: IBUPROFEN 600 MG TABLET PO ONE (14:15)
[2021-02-27 16:09] VITALS: BP 115/81
== END 2021-02-27 16:26 | disposition home or self-care (01) ==
LOC: EMS 13:14
DX: S62.622A Displaced fracture of middle phalanx of right middle finger, initial encounter for closed fracture (principal); W23.0XXA Caught, crushed, jammed, or pinched between moving objects, initial encounter; Y93.89 Activity, other specified; Y92.89 Other specified places as the place of occurrence of the external cause; Y99.8 Other external cause status
CPT/HCPCS: 99283

== ENCOUNTER 2022-01-29 12:11 | Emergency (ER) | payer OTHER ==
[~2022-01-29] VITALS: Ht 167.6 cm; Wt 68.2 kg
[~2022-01-29 12:11] MED LIST changes: -DULO20CA27 PO; +DULO20CA71 PO
[2022-01-29] MEDS ORDERED: VENL-67 PO (12:18)
[2022-01-29] MEDS ORDERED: CIMETIDINE 200 MG TABLET PO ONE (13:00)
[2022-01-29] MEDS ORDERED: PB/HYOSCY/ATR/SCOP/LIDO/MAALOX 55 ML BOTTLE PO ONE (13:00)
[2022-01-29] MEDS ORDERED: GABA-1181 PO (13:07)
[2022-01-29] MEDS ORDERED: OMEP20TA2 PO (13:07)
[2022-01-29] MEDS ORDERED: PROM-163 PO (13:07)
[2022-01-29] MEDS ORDERED: METH-659 PO (13:12)
[2022-01-29 13:15] VITALS: BP 128/80
[2022-01-29] MEDS ORDERED: PROMETHAZINE HCL 25 MG TABLET PO ONE (13:15)
== END 2022-01-29 13:26 | disposition home or self-care (01) ==
LOC: EMS 12:32
DX: S16.1XXA Strain of muscle, fascia and tendon at neck level, initial encounter (principal); F31.9 Bipolar disorder, unspecified; F41.9 Anxiety disorder, unspecified; F14.10 Cocaine abuse, uncomplicated; F15.10 Other stimulant abuse, uncomplicated; F17.210 Nicotine dependence, cigarettes, uncomplicated; K21.9 Gastro-esophageal reflux disease without esophagitis; R12 Heartburn; R11.2 Nausea with vomiting, unspecified; X58.XXXA Exposure to other specified factors, initial encounter; Y93.89 Activity, other specified; Y92.89 Other specified places as the place of occurrence of the external cause; Y99.8 Other external cause status
CPT/HCPCS: 99284; Q9967; Z7502; Z7610

== ENCOUNTER 2022-04-09 04:30 | Emergency (ER) | payer OTHER ==
[~2022-04-09] VITALS: Ht 177.8 cm; Wt 86.4 kg
[~2022-04-09 04:30] MED LIST changes: -DULO20CA71 PO; +GABA-1181 PO; +METH-659 PO; +OMEP20TA2 PO; +PROM-163 PO; +VENL-67 PO
[2022-04-09 07:05] LABS: BASOPHILS % (AUTO) 0.9 % (0.0-2.0); EOSINOPHILS % (AUTO) 0.8 % (1.0-6.0); HEMATOCRIT 43.6 % (41-53); HEMOGLOBIN 14.6 g/dL (13.5-17.5); LYMPHOCYTES # (AUTO) 1.4 K/uL (1.0-4.8); LYMPHOCYTES % (AUTO) 22.3 % (22.0-44.0); MEAN CORPUSCULAR HEMOGLOBIN 29.6 pg (26.0-34.0); MEAN CORPUSCULAR HGB CONC 33.4 G/dL (31.0-37.0); MEAN CORPUSCULAR VOLUME 89 fL (80-100); MONOCYTES # (AUTO) 0.6 K/uL (0.1-1.0); NEUTROPHILS # (AUTO) 4.1 K/uL (1.8-7.7); PLATELET COUNT (AUTO) 219 K/uL (150-450); RED BLOOD CELL COUNT(AUTO) 4.91 MIL/uL (4.50-5.90); RED CELL DISTRIBUTION WIDTH 13.7 % (11.5-14.5)
[2022-04-09 07:06] LABS: ANION GAP 6 mmol/L (8-16); CARBON DIOXIDE 31 mmol/L (22-29); CHLORIDE 108 mmol/L (98-107); CREATININE 0.98 mg/dL (0.60-1.30); GLUCOSE,RANDOM 91 mg/dL (70-110); POTASSIUM 4.6 mmol/L (3.5-5.1); SODIUM SERUM 145 mmol/L (136-145); UREA NITROGEN, BLOOD 24 mg/dL (7-18)
[2022-04-09 07:07] LABS: GLOMERULAR FILTR. RATE CALC > 60 mL/min (>60)
[2022-04-09 07:12] LABS: ALANINE AMINOTRANSFERASE 98 U/L (12-78); ALBUMIN 3.8 g/dL (3.4-5.0); ALKALINE PHOSPHATASE 52 U/L (46-116); ASPARTATE AMINOTRANSFERASE 86 U/L (15-37); BILIRUBIN,TOTAL 0.7 mg/dL (0.1-1.0)
[2022-04-09] MEDS ORDERED: HYDROGEN PEROXIDE 118 ML SOLUTION TP ONE (07:30)
[2022-04-09] MEDS ORDERED: PERTUSS(ACELL),DIPH,TET VAC/PF 0.5 ML SYRINGE IM. ONE (08:00)
[2022-04-09 12:30] VITALS: BP 132/87
== END 2022-04-09 12:40 | disposition home or self-care (01) ==
LOC: EMS 04:31
DX: S01.81XA Laceration without foreign body of other part of head, initial encounter (principal); F32.9 Major depressive disorder, single episode, unspecified; F41.9 Anxiety disorder, unspecified; F15.10 Other stimulant abuse, uncomplicated; F14.10 Cocaine abuse, uncomplicated; F17.210 Nicotine dependence, cigarettes, uncomplicated; K21.9 Gastro-esophageal reflux disease without esophagitis; X58.XXXA Exposure to other specified factors, initial encounter; Y93.89 Activity, other specified; Y92.89 Other specified places as the place of occurrence of the external cause; Y99.8 Other external cause status
CPT/HCPCS: 99285; 70450; 80053; 85025; 36415; 72125; 90715; 90471; G0480

== ENCOUNTER 2022-04-21 23:54 | Emergency (ER) | payer MEDICAID, OTHER ==
[~2022-04-21] VITALS: Ht 170.2 cm; Wt 68.0 kg
[~2022-04-21 23:54] MED LIST changes: +CLON-595 PO
[2022-04-22] MEDS ORDERED: ALPR2TAB7 PO (00:11)
[2022-04-22] MEDS ORDERED: CLON2TAB11 PO (00:11)
[2022-04-22] MEDS ORDERED: QUET100T34 PO (00:11)
[2022-04-22] MEDS ORDERED: VORT10TA PO (00:11)
[2022-04-22] MEDS ORDERED: GABA-1181 PO (00:11)
[2022-04-22] MEDS: SODIUM CHLORIDE 0.9% 1,000 ML IV ONE ×2 (01:28→02:25)
[2022-04-22 02:25] LABS: COVID AG,FIA SOURCE NASOPHARYNGEAL
[2022-04-22 02:27] LABS: BASOPHILS % (AUTO) 0.8 % (0.0-2.0); EOSINOPHILS % (AUTO) 2.1 % (1.0-6.0); HEMATOCRIT 41.9 % (41-53); HEMOGLOBIN 14.2 g/dL (13.5-17.5); LYMPHOCYTES % (AUTO) 19.8 % (22.0-44.0); MEAN CORPUSCULAR HEMOGLOBIN 29.6 pg (26.0-34.0); MEAN CORPUSCULAR HGB CONC 33.8 G/dL (31.0-37.0); MEAN CORPUSCULAR VOLUME 88 fL (80-100); MONOCYTES # (AUTO) 0.6 K/uL (0.1-1.0); MONOCYTES % (AUTO) 5.9 % (2.0-9.0); NEUTROPHILS # (AUTO) 7.2 K/uL (1.8-7.7); NEUTROPHILS % (AUTO) 71.4 % (40.0-70.0); PLATELET COUNT (AUTO) 202 K/uL (150-450); RED BLOOD CELL COUNT(AUTO) 4.78 MIL/uL (4.50-5.90); RED CELL DISTRIBUTION WIDTH 13.8 % (11.5-14.5)
[2022-04-22 02:41] LABS: ANION GAP 9 mmol/L (8-16); CALCIUM, TOTAL 8.7 mg/dL (8.8-10.5); CARBON DIOXIDE 25 mmol/L (22-29); CHLORIDE 106 mmol/L (98-107); CREATININE 1.05 mg/dL (0.60-1.30); GLUCOSE,RANDOM 87 mg/dL (70-110); POTASSIUM 3.8 mmol/L (3.5-5.1); SODIUM SERUM 140 mmol/L (136-145); UREA NITROGEN, BLOOD 23 mg/dL (7-18)
[2022-04-22] MEDS ORDERED: NALO1SYR6 IM (02:43)
[2022-04-22 02:45] LABS: ALANINE AMINOTRANSFERASE 85 U/L (12-78); ALBUMIN 3.5 g/dL (3.4-5.0); ALKALINE PHOSPHATASE 54 U/L (46-116); ASPARTATE AMINOTRANSFERASE 68 U/L (15-37); BILIRUBIN,TOTAL 0.6 mg/dL (0.1-1.0); LIPASE 116 U/L (73-393); TOTAL PROTEIN, SERUM 7.7 g/dL (6.4-8.2)
[2022-04-22 02:46] LABS: GLOMERULAR FILTR. RATE CALC > 60 mL/min (>60)
[2022-04-22 02:48] VITALS: BP 141/98
[2022-04-22 02:48] LABS: LACTIC ACID 0.9 mmol/L (0.4-2.0)
[2022-04-22 02:52] LABS: B-TYPE NATRIURETIC PEPTIDE 13 pg/mL (0-100)
== END 2022-04-22 02:53 | disposition left against medical advice (07) ==
LOC: EMS 23:54 → MERGE 23:54 → EMS 04-22 02:53
DX: S80.02XA Contusion of left knee, initial encounter (principal); R41.82 Altered mental status, unspecified; F19.90 Other psychoactive substance use, unspecified, uncomplicated; F17.210 Nicotine dependence, cigarettes, uncomplicated; F41.9 Anxiety disorder, unspecified; F10.10 Alcohol abuse, uncomplicated; Z20.822 Contact with and (suspected) exposure to COVID-19; X58.XXXA Exposure to other specified factors, initial encounter; Y93.89 Activity, other specified; Y92.89 Other specified places as the place of occurrence of the external cause; Y99.8 Other external cause status
CPT/HCPCS: 99285; 87426; 80053; 83605; 83690; 83880; 84484; 85025; 36415; 96360; 71045; 73562; 93005; G0480; J7030; 99284

== ENCOUNTER 2023-09-23 21:53 | Emergency (ER) | payer OTHER ==
[~2023-09-23] VITALS: Ht 167.6 cm; Wt 68.2 kg
[~2023-09-23 21:53] MED LIST changes: -ARIP15TA27 PO; -CLON-595 PO; -GABA-1181 PO; -METH-659 PO; +METHADONE PO; -OMEP20TA2 PO; -PROM-163 PO; +QUET100T34 PO; -VENL-67 PO
[2023-09-23] MEDS: PERTUSS(ACELL),DIPH,TET/PF 0.5 ML SYRINGE [ADULT] IM. ONE (22:45)
[2023-09-23] MEDS: ACETAMINOPHEN 500 MG TABLET PO ONE (22:47)
[2023-09-23] MEDS: BACITRACIN 0.9 GM PACKET OINTMENT TP ONE (22:47)
[2023-09-23] MEDS: LIDOCAINE 1%/EPI 1:200,000/PF 10 ML VIAL SQ ONE (22:47)
[2023-09-24] VITALS: BP 129/71; PULSE 99; RESP 20; TEMP 98.3
== END 2023-09-24 00:01 | disposition home or self-care (01) ==
LOC: EMS 21:53
DX: S01.81XA Laceration without foreign body of other part of head, initial encounter (principal); S09.90XA Unspecified injury of head, initial encounter; K21.9 Gastro-esophageal reflux disease without esophagitis; F31.9 Bipolar disorder, unspecified; F17.210 Nicotine dependence, cigarettes, uncomplicated; W19.XXXA Unspecified fall, initial encounter; Y93.89 Activity, other specified; Y92.89 Other specified places as the place of occurrence of the external cause; Y99.8 Other external cause status
CPT/HCPCS: 99285; 70450; 72125; 90715; 90471; 12013; J3490